=== PATIENT | female | born 1980 | race Caucasian/White ===

== ENCOUNTER 2017-07-15 09:58 | Emergency (ER) | payer SELFPAY ==
[2017-07-15 10:06] VITALS: BP 112/75
--- NOTE | 2017-07-15 10:55 | UC ---
Dianelys Saab Gabriel, scribed for Venecia Crain MD on 07/15/17 at 1047 . General HPI - HPI Summary HPI Summary: This patient is a 37 year old F presenting to [facility] with a chief complaint of fatigue and rhinorrhea that began yesterday but was worse this morning. Pt had a sore throat last night that resolved this morning. The patient rates the pain 0/10 in severity. Patient reports general malaise. Patient denies congestion, ear pain, fever, chills, n/v, and chest congestion. Took OTC generic Benadryl this morning. Pt states sx may be due to her seasonal allergies. Her main concern today is the general malaise and fatigue. Patients medication reviewed this visit. - History of Current Complaint Chief Complaint: UCRespiratory Stated Complaint: RESP COMPLAINT Time Seen by Provider: 07/15/17 10:32 Hx Obtained From: Patient Onset/Duration: Lasting Days, Still Present, Worse Since - this am Onset Severity: Mild Current Severity: Moderate Pain Intensity: 0 Associated Signs & Symptoms: Positive: Other - sore throat, nasal congestion, fatigue, - Allergy/Home Medications Allergies/Adverse Reactions: Allergies Allergy/AdvReac Type Severity Reaction Status Date / Time No Known Allergies Allergy Verified 07/15/17 10:05 Home Medications: Home Medications diphenhydrAMINE HCl [Benadryl Allergy] 25 mg PO 07/15/17 [History] PMH/Surg Hx/FS Hx/Imm Hx Previously Healthy: Yes Other Respiratory History: seasonal allergies Other History Of: Negative For: HIV - Surgical History Surgical History: Yes Surgery Procedure, Year, and Place: d&c 2006 - Family History Known Family History: Positive: Hypertension, Diabetes - Social History Occupation: Employed Full-time - doctor office Alcohol Use: None Substance Use Type: None Smoking Status (MU): Never Smoked Tobacco Review of Systems Constitutional: Fatigue, Other - general malaise ENT: Nasal Discharge All Other Systems Reviewed And Are Negative: Yes Physical Exam - Summary Physical Exam Summary: Vital Signs Reviewed: Yes A+Ox3, no distress Eyes: Conjunctiva Clear, SHERIE. EOM intact and full ENT: Hearing grossly normal,TM x 2 clear turbinates inflammed and boggy no discomfort with sinuses mild PND , mmoist, uvula midline, no exudate, no erythema Neck: Positive: Supple Respiratory: Positive: No respiratory distress, No accessory muscle use + CTA throughout no w/r Cardiovascular: RRR nl s1, s2 no m/r CBT <2 sec abd soft + BS nt/nd no guarding, no distension Musculoskeletal Exam: SANCHEZ x 4 without difficulty Strength Intact, ROM Intact Neurological: Positive: Alert, + sensation throughout Psychological: Positive: Normal Response To Family Skin: Positive: no rash, no ecchymosis Triage Information Reviewed: Yes Vital Signs: Initial Vital Signs Temp 97.5 F 07/15/17 10:03 Pulse 81 07/15/17 10:03 Resp 18 07/15/17 10:03 BP 112/75 07/15/17 10:03 Pulse Ox 100 07/15/17 10:03 Course/Dx - Course Course Of Treatment: pt with 24 hours congestion, sore throat, pnd - improved today. pt took Benadryl this morning - states feels "blah" and tired today. Pt with mild congestion on exam. VSS. recommed claritin. flonase. rest. work note. return precautions - Differential Dx - Multi-Symptom Provider Diagnoses: upper respiratory infection Discharge - Sign-Out/Discharge Documenting (check all that apply): Discharge/Admit/Transfer - Discharge Plan Condition: Stable Disposition: HOME Prescriptions: Fluticasone NASAL SPRAY 50MCG* [Flonase NASAL SPRAY 50MCG*] 2 spray BOTH NARES DAILY #1 btl Patient Education Materials: Upper Respiratory Infection (ED), Allergic Rhinitis (ED) Forms: *Work Release Referrals: Marlon PIÑA,Vin Cantrell [Primary Care Provider] - Additional Instructions: - Okay to alternate ibuprofen (Advil, Motrin) and Tylenol every 3 hours for pain. Take with food. Do NOT take for more than 4-5 days - Okay to gargle and spit every 4 hours as needed for pain - Stay well hydrated - frequent sips of cold fluids will be soothing to your throat (popsicles, jello, ice cream, ice water). Avoid excess caffeine until your symptoms have resolved. - get plenty of restful sleep - take claritin daily as recommended - upper respiratory infections are spread by secretions. o not share eating or drinking utensils. Frequent hand washing is important. Clean items that may get your secretions on them such as cell phones, ipads, computer mouse, television remotes. Once you start to feel better, change your pillowcase and your toothbrush - use nasal spray daily as instructed - contact your doctor or return with ANY questions or concerns. - Billing Disposition and Condition Condition: STABLE Disposition: Home The documentation as recorded by the Dianelys saucedo Gabriel accurately reflects the service I personally performed and the decisions made by me, Venecia Crain MD.
== END 2017-07-15 11:05 | disposition home or self-care (01) ==
LOC: UCEAST 09:58
DX: J06.9 Acute upper respiratory infection, unspecified (principal); R53.83 Other fatigue; R53.81 Other malaise; Z91.09 Other allergy status, other than to drugs and biological substances
CPT/HCPCS: 99212; G0463

== ENCOUNTER 2017-10-16 11:38 | Emergency (ER) | payer OTHER ==
--- NOTE | 2017-10-16 13:58 | UC ---
Back Pain HPI - HPI Summary HPI Summary: 37-year-old female presents with onset of left flank pain yesterday. States the pain is intermittent dull ache. Denies any aggravating or alleviating factors. She did take 1 dose of acetaminophen without relief. Associated with some mild nausea. She states that the pain woke her up several times during the night last night. She does have a history of kidney stones. Last one was approximately 10 years ago. Denies any fever, chills, chest pain, shortness of breath, abdominal pain, vomiting, diarrhea, dysuria, frequency, urgency, or hematuria. - History of Current Complaint Chief Complaint: UCBackPain Stated Complaint: BACK PAIN Time Seen by Provider: 10/16/17 13:43 Hx Obtained From: Patient Hx Last Menstrual Period: 09/28/17 Onset/Duration: Sudden Onset Timing: Intermittent Severity Initially: Moderate Severity Currently: Moderate Pain Intensity: 8 Character: Aching Aggravating Factor(s): Nothing Alleviating Factor(s): Nothing Associated Signs And Symptoms: Positive: Flank Pain. Negative: Fever, Weakness , Numbness, Tingling, Abdominal Pain, Bladder Incontinence, Bowel Incontinence - Allergies/Home Medications Allergies/Adverse Reactions: Allergies Allergy/AdvReac Type Severity Reaction Status Date / Time meperidine [From Demerol] Allergy Rash Verified 10/16/17 11:51 Home Medications: Home Medications NK [No Home Medications Reported] 10/16/17 [History Confirmed 10/16/17] PMH/Surg Hx/FS Hx/Imm Hx GI/ History: Kidney Stones Other History Of: Negative For: HIV - Surgical History Surgical History: Yes Surgery Procedure, Year, and Place: d&c 2006 - Family History Known Family History: Positive: Hypertension, Diabetes - Social History Occupation: Employed Full-time Lives: With Family Alcohol Use: None Substance Use Type: None Smoking Status (MU): Never Smoked Tobacco Review of Systems Constitutional: Negative Skin: Negative Gastrointestinal: Nausea Genitourinary: Negative Motor: Negative Neurovascular: Negative Musculoskeletal: Negative Is Patient Immunocompromised?: No All Other Systems Reviewed And Are Negative: Yes Physical Exam Triage Information Reviewed: Yes Appearance: Well-Appearing, No Pain Distress, Well-Nourished Vital Signs: Initial Vital Signs Temp 97.3 F 10/16/17 11:46 Pulse 72 10/16/17 11:46 Resp 20 10/16/17 11:46 BP 137/85 10/16/17 11:46 Pulse Ox 100 10/16/17 11:46 Vital Signs Reviewed: Yes Respiratory: Positive: Lungs clear, Normal breath sounds, No respiratory distress Cardiovascular: Positive: RRR, No Murmur Abdomen Description: Positive: Nontender, No Organomegaly, Soft, CVA Tenderness (L). Negative: CVA Tenderness (R), Distended, Guarding Neurological: Positive: Alert Skin Exam: Normal Diagnostics - Radiology No standard instances Xray Interpretation: Positive (See Comments) - Order Information: CT ABD/PEL W/ O Accession Number: [id number] CPT: 41527 INDICATION: LEFT flank pain. Assess for urolithiasis. COMPARISON: No relevant prior exams available on the [facility] [place] for comparison. TECHNIQUE: Multidetector CT images were obtained from the lung bases to the ischial tuberosities. No oral contrast administered. Assessment of the visceral limited without IV contrast. Multiplanar reformation. REPORT: VISUALIZED INFERIOR THORAX: Unremarkable visualized inferior thorax. LIVER / GALLBLADDER / PANCREAS / SPLEEN: 21 cm cephalocaudal liver is normal in density and without evidence for focal lesions or biliary dilatation within limits of noncontrast CT. Unremarkable gallbladder and pancreas within limits of noncontrast CT. Normal size spleen with multiple small calcified granulomas. ALIMENTARY TRACT: Negative for CT abnormality of the upper GI, small bowel, medially extending appendix. Moderate diverticulosis of the sigmoid colon without acute inflammatory change. Negative for ascites or free air. Small fat-containing indirect appearing LEFT inguinal hernia without inflammatory change. MESENTERIC: Unremarkable. ADRENAL / GENITOURINARY: Normal adrenal glands. Negative for urolithiasis or hydronephrosis. No conspicuous focal renal lesions. Negative for perinephric or periureteral inflammatory stranding. Unremarkable urinary bladder. Unremarkable CT appearance of the anteverted uterus. Bilateral fallopian tube contraceptive coils in place. Unremarkable adnexal regions. RETROPERITONEAL: Negative for lymphadenopathy. VASCULAR: Normal diameter abdominal aorta and iliac arteries. Physiologic distention of the IVC. BONES: Unremarkable. SOFT TISSUE: Unremarkable. IMPRESSION: #. Negative for urolithiasis or hydronephrosis. #. Normal appendix documented. #. Moderate diverticulosis of the sigmoid colon without evidence for acute diverticulitis. Radiology Interpretation Completed By: Radiologist Back Pain Course/Dx - Course Course Of Treatment: 37 year old female with history of kidney stones presents for 1 day history of intermttient left flank pain. UA showed trace blood without evidence of infection. Exam revealed a well-appearing female in no acute distress with an unremarkable PE except for some mild left CVA tenderness. CT abd/pelv obtained which showed some diverticulosis without diverticulitis but was otherwise normal. VSS. Discussed findings with patient. Recommend watchful waiting with close f/u with PCP. Warning symptoms reviewed with patient. Verbalized understanding and agrees with POC. - Differential Dx/Diagnosis Provider Diagnoses: Left flank pain, diverticulosis without diverticulitis Discharge - Sign-Out/Discharge Documenting (check all that apply): Patient Departure All imaging exams completed and their final reports reviewed: Yes - Discharge Plan Condition: Stable Disposition: HOME Patient Education Materials: Diverticulosis (ED), Flank Pain (ED) Referrals: Marlon PIÑA,Vin Cantrell [Primary Care Provider] - 3 Days (For re-evaluation of symptoms) Additional Instructions: CT scan performed in the clinic today did not show any evidence of a kidney stone. There was some diverticulosis of the colon however no evidence of any inflammation or infection therefore is unlikely this is the source of your pain. Make sure you're pushing plenty of fluids. You're given a shot of an anti-inflammatory called ketorolac (Toradol) in the clinic today for your pain. He should not take any other anti-inflammatories such as ibuprofen (Advil, Motrin), naproxen (Aleve), or aspirin for at least 8 hours after receiving this injection. You may take acetaminophen (Tylenol) according to directions safely if you need anything additional for pain. Follow-up with your primary care provider in 3 days for reevaluation of your symptoms. Seek immediate medical attention in the emergency room if he develops a fever greater than 100.5 F, have worsening of pain, develop persistent vomiting, have any blood in your stool, or any worsening of symptoms. - Billing Disposition and Condition Condition: STABLE Disposition: Home
[2017-10-16] MEDS ORDERED: Ketorolac INJ* 30 MG/ML 1 ML VIAL IM ONE (14:14)
[2017-10-16 14:42] VITALS: BP 126/92
--- NOTE | 2017-10-16 15:10 | RAD ---
INDICATION: LEFT flank pain. Assess for urolithiasis. COMPARISON: No relevant prior exams available on the [facility] PACS for comparison. TECHNIQUE: Multidetector CT images were obtained from the lung bases to the ischial tuberosities. No oral contrast administered. Assessment of the visceral limited without IV contrast. Multiplanar reformation. REPORT: VISUALIZED INFERIOR THORAX: Unremarkable visualized inferior thorax. LIVER / GALLBLADDER / PANCREAS / SPLEEN: 21 cm cephalocaudal liver is normal in density and without evidence for focal lesions or biliary dilatation within limits of noncontrast CT. Unremarkable gallbladder and pancreas within limits of noncontrast CT. Normal size spleen with multiple small calcified granulomas. ALIMENTARY TRACT: Negative for CT abnormality of the upper GI, small bowel, medially extending appendix. Moderate diverticulosis of the sigmoid colon without acute inflammatory change. Negative for ascites or free air. Small fat-containing indirect appearing LEFT inguinal hernia without inflammatory change. MESENTERIC: Unremarkable. ADRENAL / GENITOURINARY: Normal adrenal glands. Negative for urolithiasis or hydronephrosis. No conspicuous focal renal lesions. Negative for perinephric or periureteral inflammatory stranding. Unremarkable urinary bladder. Unremarkable CT appearance of the anteverted uterus. Bilateral fallopian tube contraceptive coils in place. Unremarkable adnexal regions. RETROPERITONEAL: Negative for lymphadenopathy. VASCULAR: Normal diameter abdominal aorta and iliac arteries. Physiologic distention of the IVC. BONES: Unremarkable. SOFT TISSUE: Unremarkable. IMPRESSION: #. Negative for urolithiasis or hydronephrosis. #. Normal appendix documented. #. Moderate diverticulosis of the sigmoid colon without evidence for acute diverticulitis.
== END 2017-10-16 15:40 | disposition home or self-care (01) ==
LOC: UCEAST 11:38
DX: M54.5 Low back pain (principal); K57.30 Diverticulosis of large intestine without perforation or abscess without bleeding; Z87.442 Personal history of urinary calculi; Z88.5 Allergy status to narcotic agent
CPT/HCPCS: 74176; 81003; 96372; 99212; G0463; J1885

== ENCOUNTER 2018-01-14 14:19 | Emergency (ER) | payer OTHER ==
[2018-01-14 14:43] VITALS: BP 130/80
--- NOTE | 2018-01-14 14:46 | UC ---
Throat Pain/Nasal Sarath HPI - HPI Summary HPI Summary: 37 yo female presents with 3 days of a sore throat. She has been taking a daily zyrtec because she tends to get allergies, but this has not been helping. Denies fever, chills, sinus symptoms, cough, n/v. - History of Current Complaint Chief Complaint: UCRespiratory Stated Complaint: SORE THROAT Time Seen by Provider: 01/14/18 14:45 Hx Obtained From: Patient Hx Last Menstrual Period: Dec 21, 2017 Onset/Duration: Gradual Onset Severity: Mild Pain Intensity: 2 Pain Scale Used: 0-10 Numeric - Allergies/Home Medications Allergies/Adverse Reactions: Allergies Allergy/AdvReac Type Severity Reaction Status Date / Time No Known Allergies Allergy Verified 01/14/18 14:44 Home Medications: Home Medications Propranolol TAB* [Inderal TAB*] 1 tab PO ONCE PRN 01/14/18 [History Confirmed ] SUMAtriptan TAB* [Imitrex TAB*] 1 tab PO DAILY 01/14/18 [History Confirmed 01/14] PMH/Surg Hx/FS Hx/Imm Hx Neurological History: Migraine Other History Of: Negative For: HIV - Surgical History Surgical History: Yes Surgery Procedure, Year, and Place: D & C 2006 - Family History Known Family History: Positive: Hypertension, Diabetes - Social History Occupation: Employed Full-time Lives: With Family Alcohol Use: None Substance Use Type: None Smoking Status (MU): Never Smoked Tobacco Review of Systems All Other Systems Reviewed And Are Negative: Yes Constitutional: Positive: Negative Skin: Positive: Negative Eyes: Positive: Negative ENT: Positive: Sore Throat Respiratory: Positive: Negative Cardiovascular: Positive: Negative Gastrointestinal: Positive: Negative Neurovascular: Positive: Negative Musculoskeletal: Positive: Negative Neurological: Positive: Headache Psychological: Positive: Negative Physical Exam - Summary Physical Exam Summary: GENERAL: NAD. WDWN. No pain distress. SKIN: No rashes, sores, lesions, or open wounds. HEENT: Head: AT/NC Eyes: EOM intact. Conjunctiva clear without inflammation or discharge. Ears: Hearing grossly normal. TMs intact, no bulging, erythema, or edema. Nose: Nasal mucosa pink and moist. NTTP maxillary and frontal sinus. Throat: Posterior oropharynx without exudates, erythema, or tonsillar enlargement. Uvula midline. NECK: Supple. Nontender. No lymphadenopathy. CHEST: CTAB. No r/r/w. No accessory muscle use. Breathing comfortably and in no distress. CV: RRR. Without m/r/g. Pulses intact. Cap refill <2seconds NEURO: Alert. PSYCH: Age appropriate behavior. Triage Information Reviewed: Yes Vital Signs: Initial Vital Signs Temp 97.7 F 01/14/18 14:41 Pulse 70 01/14/18 14:41 Resp 18 01/14/18 14:41 BP 130/80 01/14/18 14:41 Pulse Ox 98 01/14/18 14:41 Laboratory Tests 01/14/18 14:55 Group A Strep Rapid Negative Vital Signs Reviewed: Yes Throat Pain/Nasal Course/Dx - Course Course Of Treatment: POC strep negative. Suspect viral illness. - Differential Dx/Diagnosis Provider Diagnosis: Viral pharyngitis Discharge - Sign-Out/Discharge Documenting (check all that apply): Patient Departure All imaging exams completed and their final reports reviewed: No Studies - Discharge Plan Condition: Stable Disposition: HOME Patient Education Materials: Viral Syndrome (ED) Referrals: Marlon PIÑA,Vin Cantrell [Primary Care Provider] - Additional Instructions: If you develop a fever, shortness of breath, chest pain, new or worsening symptoms - please call your PCP or go to the ED. 1) Continue taking your zyrtec and try Flonase or Nasonex over the counter - Billing Disposition and Condition Condition: STABLE Disposition: Home
== END 2018-01-14 15:15 | disposition home or self-care (01) ==
LOC: UCEAST 14:19
DX: J02.8 Acute pharyngitis due to other specified organisms (principal); G43.909 Migraine, unspecified, not intractable, without status migrainosus
CPT/HCPCS: 87651; 99211; G0463

== ENCOUNTER 2018-12-24 12:36 | Emergency (ER) | payer SELFPAY ==
[2018-12-24 16:08] VITALS: BP 142/86
--- NOTE | 2018-12-24 16:41 | ED ---
Head Injury - HPI Summary HPI Summary: This patient is a 38-year-old female presenting to the ED with the concern for a head injury. She was sent [facility]. She states yesterday she hit the right frontal portion of her head on the car while trying to get a wheelchair out. She states she did not have LOC, but following this she has had left-sided intermittent headaches, specifically more behind the eye and radiating into the occiput. She is also endorsing feelings of off balance. She denies any visual changes, photophobia, confusion, memory loss. Headache is rated 8/10, intermittent and worse with ambulation, leaning forward and moving/rotating head from side to side. She has never had a concussion or head injury in the past. - History Of Current Complaint Chief Complaint: EDHeadInjury Stated Complaint: NEEDS CT SCAN PER PT Time Seen by Provider: 12/24/18 14:16 Hx Obtained From: Patient Hx Last Menstrual Period: Dec 21, 2017 Mechanism Of Injury: Direct Blow Onset/Duration: Started Days Ago Severity Currently: Moderate Severity Initially: Moderate Pain Intensity: 2 Pain Scale Used: 0-10 Numeric Location of Head Injury: Frontal Location: Discrete At: - right sided frontal region Alleviating Factor(s): Rest Associated Signs And Symptoms: Negative - Risk Factors SDH Risk Factor: Negative - Allergies/Home Medications Allergies/Adverse Reactions: Allergies Allergy/AdvReac Type Severity Reaction Status Date / Time No Known Allergies Allergy Verified 01/14/18 14:44 PMH/Surg Hx/FS Hx/Imm Hx Previously Healthy: Yes Endocrine/Hematology History: Denies: Hx Diabetes, Hx Thyroid Disease Cardiovascular History: Denies: Hx Hypertension Respiratory History: Denies: Hx Asthma, Hx Chronic Obstructive Pulmonary Disease (COPD) GI History: Denies: Hx Ulcer - Surgical History Surgery Procedure, Year, and Place: D & C 2006 - Immunization History Hx Pertussis Vaccination: No Immunizations Up to Date: Yes Infectious Disease History: No Infectious Disease History: Denies: Hx Hepatitis, Hx Human Immunodeficiency Virus (HIV), Traveled Outside the [place] in Last 30 Days - Family History Known Family History: Positive: Hypertension, Diabetes - Social History Occupation: Employed Full-time Lives: With Family Alcohol Use: None Hx Substance Use: No Substance Use Type: Reports: None Hx Tobacco Use: No Smoking Status (MU): Never Smoked Tobacco Review of Systems Negative: Fever, Chills, Fatigue, Skin Diaphoresis Negative: Palpitations, Chest Pain Negative: Shortness Of Breath, Cough Genitourinary: Negative Positive: no symptoms reported, see HPI Negative: Arthralgia, Myalgia Skin: Negative Neurological: Other - off balance Positive: Headache Psychological: Normal All Other Systems Reviewed And Are Negative: Yes Physical Exam Triage Information Reviewed: Yes Vital Signs On Initial Exam: Initial Vitals Temp Pulse Resp BP Pulse Ox 97.7 F 79 17 143/113 97 12/24/18 12:45 12/24/18 12:45 12/24/18 12:45 12/24/18 12:45 12/24/18 12:45 Vital Signs Reviewed: Yes Appearance: Positive: Well-Appearing, Well-Nourished Skin: Positive: Warm, Skin Color Reflects Adequate Perfusion Head/Face: Positive: Normal Head/Face Inspection Eyes: Positive: Normal, SHERIE, Conjunctiva Clear Neck: Positive: Supple, No Lymphadenopathy Respiratory/Lung Sounds: Positive: Clear to Auscultation, Breath Sounds Present Cardiovascular: Positive: RRR, Pulses are Symmetrical in both Upper and Lower Extremities Musculoskeletal: Positive: Normal, Strength/ROM Intact Neurological: Positive: Speech Normal Psychiatric: Positive: Affect/Mood Appropriate AVPU Assessment: Alert Procedures - Sedation Patient Received Moderate/Deep Sedation with Procedure: No Diagnostics - Vital Signs Vital Signs Temp Pulse Resp BP Pulse Ox 12/24/18 16:07 97.5 F 66 16 142/86 97 12/24/18 12:45 97.7 F 79 17 143/113 97 - Laboratory Lab Statement: Any lab studies that have been ordered have been reviewed, and results considered in the medical decision making process. Head Injury Course/Dx Course Of Treatment: During his course of treatment, the patient is evaluated for head injury. On arrival into the ED, the patient appears well. GCS score 15. No evidence of depressed skull fracture, no sign of basal skull fracture, no hemotympanum, raccoon's eyes, Noble signs. No emesis, however patient does endorse some nausea. Denies any amnesia or LOC. Complete neuro exam completed and WNL. Normal head/face inspection with no cephalohematoma. Reflexes intact. EOMI, SHERIE, visual acuity intact. No obvious confusion or memory loss per patient and family. MMSE OK. GCS 15. Patient oriented to person, place and date. No obvious deformity or signs of trauma. Finger to nose, heel to toe OK. Speech normal, facial symmetry, normal gait. ROM, strength, reflexes in upper and lower extremity intact, sensation intact. CT brain obtained which is negative for any acute findings. Patient discharged with return precautions and post-concussive symptoms explained to patient. Patient agrees to follow up and return if needed. Brain rest advised. - Diagnoses Differential Diagnosis/HQI/PQRI: Concussion With LOC, Concussion Without LOC, Contusion Provider Diagnoses: Concussion, Head injury Discharge ED - Sign-Out/Discharge Documenting (check all that apply): Patient Departure - Discharge Plan Condition: Stable Disposition: HOME Patient Education Materials: Concussion (ED) Forms: *Work Release Referrals: Marlon PIÑA,Vin Cantrell [Primary Care Provider] - Additional Instructions: Brain rest as much as possible when needed Ibuprofen 600mg three times daily Tylenol 650mg three times daily Use these intermittently to try to control any headaches Sleep and close your eyes as much as possible, especially if you have a headache , are dizzy, or feel off balance Please follow up with your PCP next week If you develop any worsening symptoms, return to the ED - Billing Disposition and Condition Condition: STABLE Disposition: Home - Attestation Statements Provider Attestation: I was available for consultation for this patient. I did not evaluate the patient or participate in any medical decision making or disposition decisions unless I am specifically named in the chart as having consulted on the patient. If I have consulted on the patient, please see my own ED note on the patient encounter. Mayte Garcia MD
== END 2018-12-24 15:52 | disposition home or self-care (01) ==
LOC: ED 12:36
DX: S06.0X9A Concussion with loss of consciousness of unspecified duration, initial encounter (principal); V49.88XA Car occupant (driver) (passenger) injured in other specified transport accidents, initial encounter; Y92.9 Unspecified place or not applicable
CPT/HCPCS: 70450; 99281